=== PATIENT | male | born 1940 | race Caucasian/White ===

== ENCOUNTER 2017-02-10 06:03 | Observation (INO) | payer OTHER, BC ==
[~2017-02-10] VITALS: Ht 177.8 cm; Wt 92.4 kg
[2017-02-10 07:04] LABS: HEMATOCRIT 38.7 % (38.0-50.0); MCH 31.4 PG (29.0-34.0); MCHC 36.2 G/DL (30.0-36.0); MCV 86.8 FL (86-99); MEAN PLAT.VOLUME 10.2 uM^3 (9.0-12.4); PLATELET COUNT 219 K/uL (156-360); RBC DIS.WIDTH-CV 12.1 % (11.8-14.6); RBC DIS.WIDTH-SD 38.4 % (39-53); RED BLOOD COUNT 4.46 M/uL (4.00-5.50)
[2017-02-10 07:39] LABS: ANION GAP 11 MEQ/L (2-14); CHLORIDE 100 MEQ/L (99-109); POTASSIUM 3.9 MEQ/L (3.7-5.4); SAMPLE HEMOLYSIS CHECK 0; SAMPLE ICTERIC CHECK 0; SAMPLE LIPEMIA CHECK 0; SODIUM 138 MEQ/L (136-147)
[2017-02-10 07:44] LABS: GFR ESTIMATE (CALCULATED) > 59 mL/min/; GLUCOSE 246 mg/dL (70-99); UREA NITROGEN (BUN) 15 mg/dL (9-23)
[2017-02-10 07:49] LABS: TROP-I INTERPRETATION NEGATIVE; TROPONIN-I 0.03 ng/mL (0.0-0.30)
[2017-02-10] MEDS ORDERED: METFORMIN HCL500 MG PO (08:33)
[2017-02-10] MEDS ORDERED: ASPIRIN81 M2 PO (08:34)
[2017-02-10] MEDS ORDERED: ASPIRIN325 MG PO (08:34)
[2017-02-10 09:20] VITALS: BP 188/93
[2017-02-10 09:59] LABS: HDL CHOLESTEROL 32 MG/DL (Desirable>=40); LDL CHOLESTEROL 57 mg/dL (Desirable<100); NON-HDL CHOLESTEROL 110 mg/dL (Desirable<160); TOTAL CHOLESTEROL 142 mg/dL (Desirable<200); TRIGLYCERIDES 265 MG/DL (Normal: <150)
[2017-02-10 11:13] VITALS: BP 181/89
[2017-02-10 13:59] LABS: TROP-I INTERPRETATION POSITIVE; TROPONIN-I 2.26 ng/mL (0.0-0.30)
[2017-02-10 14:29] VITALS: BP 182/84
[2017-02-10 14:52] LABS: INTER. NORMALIZED RATIO 1.1; PROTHROMBIN TIME 10.7 (9.2-11.2); PTT 23.4 (25-32)
[2017-02-10 15:50] LABS: POINT-OF-CARE METER ID UU13113696; POINT-OF-CARE USER ID HMLCJM07
[2017-02-10 18:46] LABS: TROP-I INTERPRETATION POSITIVE; TROPONIN-I 42.87 ng/mL (0.0-0.30)
[2017-02-10 20:44] VITALS: BP 148/70
[2017-02-10 22:20] VITALS: BP 148/79
[2017-02-11 03:52] VITALS: BP 124/70
[2017-02-11 06:38] LABS: HEMATOCRIT 35.8 % (38.0-50.0); MCH 30.7 PG (29.0-34.0); MCHC 35.8 G/DL (30.0-36.0); MCV 85.9 FL (86-99); MEAN PLAT.VOLUME 10.4 uM^3 (9.0-12.4); PLATELET COUNT 236 K/uL (156-360); RBC DIS.WIDTH-CV 12.3 % (11.8-14.6); RBC DIS.WIDTH-SD 38.6 % (39-53); RED BLOOD COUNT 4.17 M/uL (4.00-5.50)
[2017-02-11 06:42] LABS: WHITE BLOOD COUNT 10.5 K/uL (4.1-10.2)
[2017-02-11 07:06] LABS: Estimated Average Glucose 157 mg/dL (70-123); HEMOGLOBIN A1c (GLYCOHEMOGLOB) 7.1 % HGB (Below 5.7)
[2017-02-11 07:44] VITALS: BP 115/61
[2017-02-11 08:00] LABS: POINT-OF-CARE METER ID UU13113698; POINT-OF-CARE USER ID NUTSLF44
[2017-02-11] MEDS ORDERED: BRILINTA90 MG PO (11:08)
[2017-02-11] MEDS ORDERED: LOPRESSOR25 MG PO (11:09)
[2017-02-11] MEDS ORDERED: ASPIR-LOW81 MG PO (11:09)
[2017-02-11] MEDS ORDERED: ATORVASTATIN CA40 MG PO ×2 (11:10→11:11)
[2017-02-11] MEDS ORDERED: LISINOPRIL2.5 MG PO (11:21)
[2017-02-11 11:33] LABS: TROP-I INTERPRETATION POSITIVE; TROPONIN-I 34.86 ng/mL (0.0-0.30)
[2017-02-11 11:43] LABS: POINT-OF-CARE METER ID UU13113698; POINT-OF-CARE USER ID NUTSLF44
[2017-02-11 12:00] VITALS: BP 133/62
== END 2017-02-11 14:39 | disposition home or self-care (01) ==
LOC: EME 06:03 → 4EAST 08:45 → EDOF 08:45 → 5WEST 09:25 → 4EAST 14:26 → 5WEST 15:54 → 4EAST 19:46
PROVIDERS: Internal Medicine; Internal Medicine Cardiovascular Disease; Nurse Practitioner Adult Health; Nurse Practitioner Family
DX: I21.4 Non-ST elevation (NSTEMI) myocardial infarction (principal); I25.10 Atherosclerotic heart disease of native coronary artery without angina pectoris; E11.9 Type 2 diabetes mellitus without complications; I10 Essential (primary) hypertension; E66.9 Obesity, unspecified; E78.5 Hyperlipidemia, unspecified; F32.9 Major depressive disorder, single episode, unspecified; Z87.891 Personal history of nicotine dependence
CPT/HCPCS: 71020; 80048; 80061; 82948; 83036; 84484; 85027; 85347; 85610; 85730; 93005; 93306; 99281; 99285; C1725; C1769; C1874; C1887; G0378; J1644; J1815; J2250; J2270; J2405; J3010